=== PATIENT | female | born 1995 | race Caucasian/White ===

== ENCOUNTER → 2025-04-25 13:22 | Outpatient (BNVA) | payer OTHER, SELFPAY | PROVIDERS: Visit Provider Emergency Medicine | DX: S00.93XA Contusion of unspecified part of head, initial encounter (principal); Y04.2XXA Assault by strike against or bumped into by another person, initial encounter; R51.9 Headache, unspecified; M54.2 Cervicalgia | CPT/HCPCS: 99203 ==

== ENCOUNTER → 2025-04-28 08:05 | Outpatient (BNVA) | payer OTHER, SELFPAY | PROVIDERS: Visit Provider Physician Assistant Medical | DX: S00.93XA Contusion of unspecified part of head, initial encounter (principal); S46.819A Strain of other muscles, fascia and tendons at shoulder and upper arm level, unspecified arm, initial encounter; Y04.2XXA Assault by strike against or bumped into by another person, initial encounter; M54.2 Cervicalgia; Z02.79 Encounter for issue of other medical certificate | CPT/HCPCS: 99213 ==

== ENCOUNTER → 2025-05-02 09:02 | Outpatient (BNVA) | payer OTHER, SELFPAY | PROVIDERS: Visit Provider Physician Assistant Medical | DX: S00.93XA Contusion of unspecified part of head, initial encounter (principal); S46.819A Strain of other muscles, fascia and tendons at shoulder and upper arm level, unspecified arm, initial encounter; Y04.2XXA Assault by strike against or bumped into by another person, initial encounter; R51.9 Headache, unspecified; M54.2 Cervicalgia | CPT/HCPCS: 99213 ==

== ENCOUNTER → 2025-05-06 15:15 | Outpatient (BNVA) | payer OTHER, SELFPAY | PROVIDERS: Visit Provider Physician Assistant Medical | DX: S00.93XA Contusion of unspecified part of head, initial encounter (principal); Y04.2XXA Assault by strike against or bumped into by another person, initial encounter; R51.9 Headache, unspecified; M54.2 Cervicalgia; Z02.79 Encounter for issue of other medical certificate | CPT/HCPCS: 99213 ==